=== PATIENT | male | born 1965 | race African-American/Black ===

== ENCOUNTER 2017-01-15 23:20 | Emergency (ER) | payer MEDICARE, MEDICAID ==
[~2017-01-15] VITALS: Ht 182.9 cm; Wt 111.0 kg
[~2017-01-15 23:20] MED LIST: AMLO10TA80; ARIP30TA3; BECL8.7A5; BUPR300T28; CEPH500C2; DIAZ10TA4; HYDR-3933; HYDR-4005; OMEP20CA10
[2017-01-15 23:54] VITALS: BP 144/81
[2017-01-16] MEDS ORDERED: KETOROLAC 60MG/2ML VIAL IM ONE (04:00)
== END 2017-01-16 05:45 | disposition left against medical advice (07) ==
LOC: ER 23:21
DX: G89.29 Other chronic pain (principal); M54.5 Low back pain; M25.562 Pain in left knee; I10 Essential (primary) hypertension; E11.9 Type 2 diabetes mellitus without complications
CPT/HCPCS: 73562; 96372; 99284; J1885; J7030

== ENCOUNTER 2021-04-29 13:28 | Inpatient (IN) | payer OTHER, MEDICAID ==
[~2021-04-29] VITALS: Ht 182.9 cm; Wt 107.5 kg
[~2021-04-29 13:28] MED LIST changes: +ARIP30TA2; -ARIP30TA3; +BUPR-315; -BUPR300T28; -HYDR-3933; +HYDR-4009; -OMEP20CA10; +OMEP20CA14
[2021-04-29] MEDS ORDERED: LEVETIRACETAM 1000MG PREMIX 100 ML IV ONE (14:00)
[2021-04-29] MEDS ORDERED: SODIUM CHLORIDE 0.9% 1,000 ML IV ONE (14:00)
[2021-04-29 14:43] LABS: HEMATOCRIT. 34.8 % (42.0-52.0); HEMOGLOBIN. 10.2 g/dL (14.0-18.0); MEAN CORPUSCULAR HEMOGLOBIN 26.2 pg (28.0-32.0); MEAN CORPUSCULAR VOLUME 89.5 fL (80.0-94.0); MEAN PLATELET VOLUME 8.2 fl (7.4-10.4); PLATELET 212 x1000/uL (130-400); RED BLOOD CELL COUNT 3.89 mill/uL (4.7-6.1)
[2021-04-29 14:51] LABS: CHLORIDE 111 mEq/L (98-107)
[2021-04-29 14:55] LABS: ETHANOL BLOOD < 10 mg/dL
[2021-04-29 14:58] LABS: PHENOBARBITAL 2.6 ug/mL (15.0-40.0)
[2021-04-29 14:59] LABS: CARBAMAZEPINE < 0.5 ug/mL (4-12)
[2021-04-29 15:00] LABS: VALPROIC ACID < 3.0 ug/mL (50-100)
[2021-04-29 15:11] LABS: CREATINE KINASE 1379 IU/L (39-308)
[2021-04-29 15:17] LABS: CLARITY URINE TURBID (CLEAR); COLOR URINE YELLOW (YELLOW); KETONES URINE TRACE (NEGATIVE); LEUKOCYTE ESTERASE URINE NEGATIVE (NEGATIVE); NITRITE URINE NEGATIVE (NEGATIVE); OCCULT BLOOD URINE 2+ (NEGATIVE); PROTEIN URINE 1+ (NEGATIVE); SPECIFIC GRAVITY URINE 1.019 (1.005-1.030); UROBILINOGEN URINE 0.2 E.U./dL (0.2-1.0)
[2021-04-29 15:20] LABS: BG BASE EXCESS -6.9 mmol/L (-2.0-2.0); BG CARBOXYHEMOGLOBIN 2.1 % (0.5-1.5); BG DEOXYHEMOGLOBIN 7.5 % (0.0-5.0); BG FRACTION INSPIRED OXYGEN 21; BG HCO3 ACT 17.7 mmol/L (22.0-26.0); BG METHEMOGLOBIN 0.1 % (0.0-1.5); BG OXYGEN SATURATION 92.3 % (92.0-98.5); BG OXYHEMOGLOBIN 90.3 % (94.0-97.0); BG PCO2 33.2 mmHg (35.0-45.0); BG PH 7.344 (7.350-7.450); BG PO2 65.1 mmHg (75.0-100.0); BG SAMPLE SITE RIGHT RADIAL; BG TOTAL HEMOGLOBIN 14.8 g/dL (12.0-18.0); BG VENT MODE ROOM AIR
[2021-04-29] MEDS ORDERED: HYDRALAZINE 20MG/ML VIAL IV ONE (15:30)
[2021-04-29 15:35] LABS: *AMPHETAMINES SCREEN URINE NEGATIVE (NEGATIVE); *BARBITURATES SCREEN URINE NEGATIVE (NEGATIVE); *BENZODIAZEPINES SCREEN URINE NEGATIVE (NEGATIVE); *COCAINE SCREEN URINE NEGATIVE (NEGATIVE); METHADONE URINE SCREEN NEGATIVE (NEGATIVE)
[2021-04-29 15:37] LABS: CANNABINOID URINE SCREEN PRESUMTIVE POSITIVE (NEGATIVE); OPIATES URINE SCREEN NEGATIVE (NEGATIVE); PHENCYCLIDINE URINE SCREEN NEGATIVE (NEGATIVE)
[2021-04-29 16:59] LABS: PLATELET ESTIMATE NORMAL
[2021-04-29 18:01] VITALS: BP_SYST 133; BP_SYST 134; BP_DIAS 107; BP_DIAS 76
[2021-04-29] MEDS ORDERED: ACETAMINOPHEN 325MG TABLET PO PRN ×2 (19:30)
[2021-04-29] MEDS ORDERED: MAGNESIUM/ALUMINUM HYDROXIDE/SIMETHICONE 30ML UDC PO PRN (19:30)
[2021-04-29] MEDS ORDERED: ENOXAPARIN 40MG/0.4ML SYR SUBCUT SCH (19:30)
[2021-04-29] MEDS ORDERED: LEVETIRACETAM 500 MG in SODIUM CHLORIDE 0.9% 100 ML IV SCH (19:30)
[2021-04-29] MEDS ORDERED: LORAZEPAM 2MG/ML CPJ IV PRN (19:30)
[2021-04-29] MEDS ORDERED: MAGNESIUM HYDROXIDE 400MG/5ML 30ML UDC PO PRN (19:30)
[2021-04-29] MEDS ORDERED: HYDRALAZINE 20MG/ML VIAL IV PRN (19:30)
[2021-04-29] MEDS ORDERED: ONDANSETRON HCL 4MG/2ML INJ IV PRN (19:30)
[2021-04-29] MEDS ORDERED: DIPHENHYDRAMINE 50MG/ML VIAL IV PRN (19:30)
[2021-04-29] MEDS ORDERED: DEXTROSE 50% WATER 50ML SYRINGE IV PRN (19:30)
[2021-04-29] MEDS ORDERED: CLONIDINE 0.1MG TABLET PO PRN (19:30)
[2021-04-29 20:00] VITALS: BP 175/73
[2021-04-29] MEDS: METOPROLOL TARTRATE 50MG TABLET PO SCH (20:52)
[2021-04-29] MEDS: AMLODIPINE 5MG TABLET PO SCH (20:52)
[2021-04-29] MEDS: OMEPRAZOLE 20MG CAPSULE EXTENDED RELEASE PO SCH (20:52)
[2021-04-29] MEDS: ENOXAPARIN 30MG/0.3ML SYR SUBCUT SCH (20:52)
[2021-04-29] MEDS: BLOOD SUGAR DIAGNOSTIC STRIP TEST SCH (20:53)
[2021-04-29] MEDS ORDERED: KETOROLAC 30MG/ML VIAL IV PRN (21:00)
[2021-04-29 22:00] VITALS: BP 167/65
[2021-04-29] MEDS: INSULIN LISPRO 100 UNITS/ML SUBCUT SCH (22:06)
[2021-04-29] MEDS: HYDROCODONE/ACETAMINOPHEN 10/325MG TABLET PO PRN (22:37)
[2021-04-29] MEDS ORDERED: MVI, ADULT NO.1 10 ML, FOLIC ACID 1 MG, THIAMINE HCL 100 MG in SODIUM CHLORIDE 0.9% 1,0... IV SCH (23:00)
[2021-04-30] VITALS (7 sets, daily range): BP systolic 122–162; BP diastolic 55–100
[2021-04-30] MEDS: LEVETIRACETAM 500MG PREMIX 100 ML IV SCH ×2 (05:46→18:00)
[2021-04-30] MEDS: OMEPRAZOLE 20MG CAPSULE EXTENDED RELEASE PO SCH (05:46)
[2021-04-30] MEDS: BLOOD SUGAR DIAGNOSTIC STRIP TEST SCH ×3 (06:45→16:50)
[2021-04-30] MEDS: INSULIN LISPRO 100 UNITS/ML SUBCUT SCH ×3 (06:45→17:20)
[2021-04-30 07:25] LABS: CHLORIDE 109 mEq/L (98-107)
[2021-04-30 07:30] LABS: PHOSPHORUS 1.7 mg/dL (2.5-4.9)
[2021-04-30 07:45] LABS: CREATINE KINASE 2153 IU/L (39-308)
[2021-04-30] MEDS: AMLODIPINE 5MG TABLET PO SCH (08:01)
[2021-04-30] MEDS: METOPROLOL TARTRATE 50MG TABLET PO SCH ×2 (08:02→08:43)
[2021-04-30] MEDS: HYDROCODONE/ACETAMINOPHEN 10/325MG TABLET PO PRN (08:03)
[2021-04-30 08:28] LABS: BASOPHILS % 0.7 % (0.0-2.0); EOSINOPHILS % 0.6 % (0.0-5.0); HEMATOCRIT. 42.7 % (42.0-52.0); HEMOGLOBIN. 14.2 g/dL (14.0-18.0); LYMPHOCYTES % 16.9 % (20.0-50.0); MEAN CORPUSCULAR HEMOGLOBIN 26.6 pg (28.0-32.0); MEAN CORPUSCULAR VOLUME 80.3 fL (80.0-94.0); MEAN PLATELET VOLUME 8.2 fl (7.4-10.4); NEUTROPHILS % 74.8 % (40.0-76.0); PLATELET 290 x1000/uL (130-400); RED BLOOD CELL COUNT 5.32 mill/uL (4.7-6.1); RED CELL DISTRIBUTION WIDTH 13.8 % (11.6-14.6)
[2021-04-30] MEDS: ENOXAPARIN 30MG/0.3ML SYR SUBCUT SCH (08:43)
[2021-04-30] MEDS: SODIUM CHLORIDE 0.9% 1,000 ML IV SCH ×2 (08:55→17:00)
[2021-04-30] MEDS ORDERED: POTASSIUM CHLORIDE 20MEQ TABLET SR PO SCH (10:00)
[2021-04-30] MEDS ORDERED: POTASSIUM PHOS,M-BASIC-D-BASIC 20 MMOL in DEXT 5% WATER 243.3333 ML IV SCH (11:00)
== END 2021-04-30 19:33 | disposition home or self-care (01) | DRG 101 ==
LOC: ER 13:47 → 3WST 15:42 → ENRESERV 16:47 → EDBEDREQ 16:48
PROVIDERS: ADMIT Internal Medicine; ATTEND Internal Medicine
DX: G40.909 Epilepsy, unspecified, not intractable, without status epilepticus (principal); E87.2 Acidosis; F05 Delirium due to known physiological condition; M62.82 Rhabdomyolysis; E11.9 Type 2 diabetes mellitus without complications; E83.39 Other disorders of phosphorus metabolism; E87.6 Hypokalemia; F12.90 Cannabis use, unspecified, uncomplicated; J45.909 Unspecified asthma, uncomplicated; R32 Unspecified urinary incontinence; Z79.899 Other long term (current) drug therapy; Z82.49 Family history of ischemic heart disease and other diseases of the circulatory system; Z83.3 Family history of diabetes mellitus; I10 Essential (primary) hypertension
CPT/HCPCS: 36415; 36600; 71045; 80048; 80053; 80156; 80165; 80184; 80185; 80305; 80320; 81003; 82375; 82550; 82805; 82962; 83036; 83735; 84100; 85025; 93005; 99291; J0360; J1650; J1815; J1953; J2060; J3411; J3490; J7030; J7060; G0480

== ENCOUNTER 2022-11-21 13:34 | Emergency (ER) | payer OTHER, MEDICAID ==
[~2022-11-21] VITALS: Ht 182.9 cm; Wt 112.0 kg
[2022-11-21 14:47] VITALS: BP 168/79
[2022-11-21] MEDS: IBUPROFEN 600MG TABLET PO ONE ×2 (19:04→19:05)
[2022-11-21] MEDS ORDERED: IBUP-2029 MT (19:49)
[2022-11-21] MEDS ORDERED: CYCL10TA21 MT (19:49)
== END 2022-11-21 20:00 | disposition home or self-care (01) ==
LOC: ER 13:34
DX: M79.10 Myalgia, unspecified site (principal); W18.39XA Other fall on same level, initial encounter; Y93.89 Activity, other specified; Y92.89 Other specified places as the place of occurrence of the external cause; Y99.8 Other external cause status; J45.909 Unspecified asthma, uncomplicated; I10 Essential (primary) hypertension
CPT/HCPCS: 71045; 73502; 99284